=== PATIENT | female | born 1960 | race Caucasian/White ===

== ENCOUNTER 2017-02-22 18:28 | Emergency (ER) | payer OTHER ==
[~2017-02-22] VITALS: Ht 162.6 cm; Wt 74.2 kg
[2017-02-22 19:25] LABS: HEMATOCRIT 41.2 % (36.0-46.0); MCH 30.9 PG (29.0-34.0); MCHC 33.3 G/DL (30.0-36.0); MEAN PLAT.VOLUME 9.3 uM^3 (9.5-12.4); PLATELET COUNT 313 K/uL (156-360); RBC DIS.WIDTH-CV 12.8 % (11.8-14.6); RBC DIS.WIDTH-SD 43.8 % (39-53); RED BLOOD COUNT 4.43 M/uL (3.80-5.20); WHITE BLOOD COUNT 8.5 K/uL (4.1-10.2)
[2017-02-22 19:38] LABS: CHLORIDE 105 mEq/L (99-109); POTASSIUM 4.3 mEq/L (3.7-5.4); SODIUM 137 mEq/L (136-147)
[2017-02-22 19:40] LABS: GLUCOSE 101 mg/dL (70-99)
[2017-02-22 19:41] LABS: ANION GAP 7 MEQ/L (2-14)
[2017-02-22 19:44] LABS: UREA NITROGEN (BUN) 15 mg/dL (9-23)
[2017-02-22 19:45] LABS: GFR ESTIMATE (CALCULATED) > 59 mL/min/
[2017-02-22 19:48] LABS: TROP-I INTERPRETATION NEGATIVE; TROPONIN-I < 0.01 ng/mL (0.0-0.30)
[2017-02-22] MEDS ORDERED: ZOFRAN ODT4 MG PO (20:12)
[2017-02-22 20:31] VITALS: BP 145/92
== END 2017-02-22 20:33 | disposition home or self-care (01) ==
LOC: EME 18:28
DX: R00.2 Palpitations (principal); Z87.891 Personal history of nicotine dependence
CPT/HCPCS: 71020; 80048; 84484; 85027; 93005; 99281; 99284